=== PATIENT | female | born 2000 | race Caucasian/White ===

== ENCOUNTER 2021-03-01 20:24 | Emergency (ER) | payer OTHER ==
[2021-03-01 21:51] LABS: BASOPHIL 0.9 % (0-2); EOSINOPHIL 5.9 % (0-5); HCT 40.8 % (37.0-47.0); HGB 13.8 g/dl (12.5-16.0); LYMPHOCYTE 40.1 % (15-48); MCH 29.7 pg (25.0-31.0); MCHC 33.8 g/dL (32.0-36.0); MCV 87.7 fL (78.0-100.0); MONOCYTE 7.9 % (0-12); MPV 9.9 fL (6.0-9.5); NRBC 0; PLT 294 K/uL (150-400); RBC 4.65 M/uL (4.20-5.40); RDW 11.7 % (11.5-14.0); WBC 9.1 K/uL (4.0-10.5)
[2021-03-01 22:11] LABS: BUN 11 mg/dL (7-18); BUN/CREAT RATIO (CALC) 13.6 RATIO; CHLORIDE 104 mmol/L (98-107); CO2 (BICARBONATE) 28 mmol/L (21-32); CREATININE 0.81 mg/dL (0.51-0.95); GLUCOSE 93 mg/dL (74-106); POTASSIUM 3.3 mmol/L (3.5-5.1)
[2021-03-01 22:27] LABS: CORONAVIRUS 2019 SARS-COV-2 NEGATIVE (NEGATIVE); INFLUENZA A NAA NEGATIVE (NEGATIVE)
== END 2021-03-01 23:48 | disposition home or self-care (01) ==
LOC: FER 20:24
PROVIDERS: Nurse Practitioner Family
DX: R07.89 Other chest pain (principal); F41.9 Anxiety disorder, unspecified; Z20.822 Contact with and (suspected) exposure to COVID-19
CPT/HCPCS: 36415; 71045; 71275; 80048; 84484; 85025; 85379; Q9967; U0002